=== PATIENT | male | born 1970 | race Caucasian/White ===

== ENCOUNTER 2022-11-20 10:51 | Emergency (ER) | payer BC, SELFPAY ==
[2022-11-20] VITALS (8 sets, daily range): BP systolic 123–158; BP diastolic 85–97; PULSE 51–71; RESP 16–18; TEMP 36.6; O2SAT 94–98; BMI 26.3
--- NOTE | 2022-11-20 11:26 | ED.ABDPAIN ---
HPI - Abdominal Pain General Time Seen by Provider: 11:26 Date Seen: 11/20/22 Chief Complaint: Abdominal Pain Stated Complaint: Abdominal pain/blood in stool Time Seen by Provider: 11/20/22 11:20 Source: patient and RN notes reviewed Mode of arrival: ambulatory Limitations: no limitations History of Present Illness HPI narrative: Patient is a 52-year-old male coming in with abdominal pain associated with some rectal bleeding. He had some cramping this morning, went to the bathroom. He noted it significant blood with wiping. He is not sure if blood filled the toilet or not. After that, pain seemed to go to the right lower quadrant. After arriving here, is feeling it more on the left lower quadrant. He is feeling a little nauseated but has not vomited. He has had colonoscopies, thinks he has had about 3 of him. He has a history of polyps but his last colonoscopy was clear. He was given a 5 year interval, believes his last colonoscopy was about 4 years ago. He has had abdominal hernia repair, no other abdominal surgery. His stool was looser this morning. No fevers. There was no pain with defecation. Movement is bothering him and increases pain at this time. MD elicited complaint: abdominal pain Related Data Home Medications Medication Instructions Recorded Confirmed fexofenadine-pseudoephedrine ER 1 tab PO DAILY 11/20/22 11/20/22 180 mg-240 mg tablet,ext.release 24 hr (Shoshana-D 24 Hour) fluticasone propionate intranasal 11/20/22 Allergies Allergy/AdvReac Type Severity Reaction Status Date / Time No Known Drug Allergies Allergy Verified 11/20/22 11:02 Review of Systems Status of ROS Reports: 10 or more systems reviewed and unremarkable except as noted in History and below [facility] Social History Smoking Status: Never smoker Do you use any of these nicotine containing products: None Second hand tobacco smoke exposure: No How often do you have a drink containing alcohol: never How often do you have six or more drinks on one occasion: Never AUDIT-C Alcohol total score: 0 Non-prescribed substance use: denies use service: No Exam Const: Vital Signs, click to edit/add: Vital Signs - 24 hr 11/20/22 10:59 Temperature 97.9 F Pulse Rate [Pulse Oximeter] 71 Respiratory Rate 18 Blood Pressure [Ri ght Upper Arm] 158/97 H Pulse Oximetry 96 Oxygen Delivery Me thod Room Air Documenting provider has reviewed patient's vital signs: yes Common normals: no apparent distress (Initially when seated), oriented x3, no limitations, healthy appearing, alert and well nourished General appearance: cooperative, comfortable (Before moving), well kempt and well developed Nutritional appearance: thin Other: When patient attempted to lie back in the bed, became extremely painful. Did attempt to move around the other side which was visibly uncomfortable for him. Did assist him into the bed from the other side. Once he was in a reclining position, felt better. HENMT: Common normals: normocephalic, head/scalp atraumatic, hearing grossly normal bilaterally, external ears normal and external nose normal Head and scalp: normocephalic and atraumatic Face and sinus: normal facial exam Nose: external nose normal External ear: external ears normal Eye: Common normals: PERRL, EOMs intact bilaterally, conjunctivae normal and no scleral icterus Conjunctiva: conjunctiva(e) normal Pupil: PERRL Neck & C-Spine: Common normals: full ROM, no lymphadenopathy, supple, no meningeal signs, no JVD and thyroid normal Thyroid: thyroid normal Resp: Common normals: normal respiratory effort, no retractions, no use of accessory muscles and clear to auscultation bilaterally Effort & inspection: able to speak in complete sentences Auscultation: clear to auscultation bilaterally Cardio: Common normals: no JVD, regular rate, regular rhythm, S1 normal heart sound, S2 normal heart sound, no gallops, no clicks and no murmurs Rate: regular rate Rhythm: regular rhythm Heart sounds: S1 normal and S2 normal GI: Common normals: Normal to inspection, nondistended, normoactive bowel sounds present, soft to palpation, no hepatosplenomegaly and no masses Palpation: soft and no hepatosplenomegaly Other: Has some mild generalized lower abdominal tenderness without rebound or guarding. Extremity: Common normals: no calf tenderness and no pedal edema Neuro: Common normals: oriented x3 Sensorium/orientation: alert Meningeal signs: no meningeal signs Psych: Appearance: well kempt Course Course Hospital Course: Patient is declining any pain management, states he is feeling better after getting into the bed and resting. He most certainly has significant pain with movement. Reviewed with him that such things like diverticular bleed, diverticulitis, possible colitis are higher probability is for me given that he has had up-to-date management with colonoscopies. Will establish an IV, give him some Zofran for nausea and initiate fluids. Will get appropriate labs including a type and screen. He will have a CT of abdomen and pelvis with IV contrast. Will monitor with pulse oximetry to start. Reevaluation(s) Time of Reevaluation #1: 14:13 Reevaluation #1: Have reviewed with patient CT findings, labs. He at this time is stable, has had no further episodes bleeding or stool production here. We are going to have him try some clears. If he tolerates this, likely discharge to home for further outpatient observation. Presumably this is a self-limited, isolated diverticular bleed. He will get his colonoscopy updated however outpatient if no further complications with this visit. Vital Signs Vital signs: Initial Vital Signs Temperature 97.9 F 11/20/22 10:59 Temperature Source Temporal Artery Scan 11/20/22 10:59 Pulse Rate 71 11/20/22 10:59 Respiratory Rate 18 11/20/22 10:59 Blood Pressure 158/97 H 11/20/22 10:59 Blood Pressure Mean 117 H 11/20/22 10:59 Blood Pressure Position Supine 11/20/22 10:59 Pulse Oximetry 96 11/20/22 10:59 Oxygen Delivery Method Room Air 11/20/22 10:59 Vital Signs Temperature 97.9 F 11/20/22 10:59 Pulse Rate 71 11/20/22 10:59 Respiratory Rate 18 11/20/22 10:59 Blood Pressure 158/97 H 11/20/22 10:59 Pulse Oximetry 96 11/20/22 10:59 Oxygen Delivery Method Room Air 11/20/22 10:59 Temperature 97.9 F 11/20/22 10:59 Pulse Rate 71 11/20/22 10:59 Respiratory Rate 18 11/20/22 10:59 Blood Pressure 158/97 H 11/20/22 10:59 Pulse Oximetry 96 11/20/22 10:59 Oxygen Delivery Method Room Air 11/20/22 10:59 MDM - Abdominal Pain Differential Diagnosis Differential diagnosis: Likely abdominal pain, acute appendicitis and diverticulitis Lab Data Attestation: I reviewed the patient's lab results. Labs: Lab Results 11/20/22 Range/Units 11:57 WBC 4.71 (4.50-11.00) K/uL RBC 4.95 (4.30-5.90) m/uL Hgb 14.8 (13.5-17.5) gm/dL Hct 44.0 (37.0-53.0) % MCV 89 (80-100) fL MCH 30 (26-34) pg MCHC 34 (32-36) gm/dL RDW Coeff of Odalis 12.9 (11.5-15.5) % Plt Count 187 (140-440) K/uL Neut % (Auto) 65.0 (42.0-72.0) % Lymph % (Auto) 23.4 (20-44) % [place] % (Auto) 7.2 (0.0-11.0) % Eos % (Auto) 3.8 (0.0-7.0) % Baso % (Auto) 0.4 (0.0-3.0) % Neut # (Auto) 3.06 (1.7-7.0) K/uL Lymph # (Auto) 1.10 (0.90-2.90) K/uL [place] # (Auto) 0.30 (0.00-0.90) K/UL Eos # (Auto) 0.18 (0.00-0.50) K/uL Baso # (Auto) 0.02 (0.00-0.30) K/uL Total Counted Cancelled Neutrophils % (Manual) Cancelled Lymphocytes % (Manual) Cancelled Reactive Lymphs % (Man) Cancelled Monocytes % (Manual) Cancelled Eosinophils % (Manual) Cancelled Basophils % (Manual) Cancelled Metamyelocytes % (Man) Cancelled Myelocytes % (Man) Cancelled Promyelocytes % (Man) Cancelled Blast Cells % (Manual) Cancelled Abs Neuts (Manual) Cancelled Lymphocytes # (Manual) Cancelled Monocytes # (Manual) Cancelled Eosinophils # (Manual) Cancelled Basophils # (Manual) Cancelled Abs Metamyelocytes (Man) Cancelled Abs Myelocytes (Man) Cancelled Abs Promyelocytes (Man) Cancelled Abs Blast Cells (Man) Cancelled Nucleated RBCs Cancelled Hypersegmented Neuts Cancelled Smudge Cells Cancelled Toxic Granulation Cancelled Dohle Bodies Cancelled Kit Rods Cancelled Platelet Estimate Cancelled Clumped Platelets Cancelled Large Platelets Cancelled Giant Platelets Cancelled RBC Morphology Cancelled Dimorphic RBCs Cancelled Polychromasia Cancelled Hypochromasia Cancelled Poikilocytosis Cancelled Basophilic Stippling Cancelled Anisocytosis Cancelled Microcytosis Cancelled Macrocytosis Cancelled Spherocytes Cancelled Pappenheimer Bodies Cancelled Sickle Cells Cancelled Target Cells Cancelled Tear Drop Cells Cancelled Ovalocytes Cancelled Stomatocytes Cancelled Helmet Cells Cancelled [place] Bodies Cancelled [place] Rings Cancelled Keanu Cells Cancelled Acanthocytes (Spur) Cancelled Rouleaux Cancelled Schistocytes Cancelled Sodium 133 L (135-149) mmol/L Potassium 3.8 (3.6-5.1) mmol/L Chloride 103 (96-114) mmol/L Carbon Dioxide 26 (20-32) mmol/L BUN 29 (7-30) mg/dL Creatinine 0.8 (0.5-1.5) mg/dL Estimated Creat Clear 122.73 Estimated GFR 105 ml/min Glucose 105 (60-115) mg/dL Lactate 0.8 (0.5-1.9) mmol/L Calcium 9.3 (8.4-10.6) mg/dL Total Bilirubin 0.8 (0.1-1.5) mg/dL AST 37 H (12-35) U/L ALT 35 (4-50) U/L Alkaline Phosphatase 69 (40-150) U/L C-Reactive Protein 0.5 (0.5-1.0) mg/dL Total Protein 7.3 (6.0-8.3) g/dL Albumin 4.6 (3.3-5.0) g/dL Blood Type B Positive Antibody Screen NEGATIVE Imaging Data CT scan - abdomen: Attestation: I have reviewed the pertinent imaging results. Radiologist's impression: Patient: JOSE JUAN DAILY Facility:?[facility] Patient ID:?[id number] Site Patient ID:?[id number]. Site :?[id number] Study:?CT Abdomen/Pelvis W/IV ONLY-11/20/2022 12:33:47 PM Ordering Physician:?Conchita Mireles Final Report: INDICATION: Rectal bleeding and lower abdominal pain COMPARISON: None TECHNIQUE: CT examination of the abdomen and pelvis was performed following the uneventful intravenous administration of 98 cc of Isovue 370. Thin section axial images were obtained from the lung bases through the pubic symphysis. Oral contrast was not administered. Please note that all CT scans at this facility use dose modulation, iterative reconstruction, and/or weight-based dosing when appropriate to reduce radiation dose to as low as reasonably achievable. FINDINGS: LUNG BASES: Linear opacities consistent with atelectasis or scarring. A right middle lobe nodule is noted measuring 4.7 millimeters. Follow-up evaluation recommended as per Fleischner society guidelines.Small hiatal hernia. Heart size normal at the lung bases LIVER/BILIARY SYSTEM:Hepatic steatosis in a geographic pattern. No focal mass or biliary ductal dilation. Normal appearing gallbladder. ADRENALS: Normal KIDNEYS, URETERS and BLADDER:Right upper pole renal cyst measuring about 3 centimeters. Kidneys otherwise unremarkable. No evidence of obstructive uropathy. The bladder appears normal SPLEEN:Normal appearance. PANCREAS: Appears normal. RETROPERITONEUM and MESENTERY: There is no mass, adenopathy or aortic aneurysm. Incidental retro aortic left renal vein. GASTROINTESTINAL SYSTEM: There is no evidence of diverticulitis, colitis, mechanical obstruction, or appendicitis. The small bowel as visualized appears normal.Scattered diverticulosis. No specific visible cause for rectal bleeding. PELVIS: No mass, adenopathy or free fluid. OSSEOUS STRUCTURES and ABDOMINAL WALL: Degenerative changes. Postsurgical changes at L5-S1.. No significant abdominal wall defect OTHER: No free fluid or free air. IMPRESSION: There is no visible cause for rectal bleeding. There are few scattered diverticula. No acute inflammatory process of bowel. No evidence of colitis or proctitis. No directly visible mass by CT. Please note that all CT scans at this facility use dose modulation, iterative reconstruction, and/or weight-based dosing when appropriate to reduce radiation dose to as low as reasonably achievable. Dictated by Jose Enrique Canas MD @ 11/20/2022 1:52:06 PM (Electronic Signature) Critical Care Time Critical Care Time Critical Care Time: No Discharge Plan Discharge Clinical Impression: Rectal bleeding, Abdominal pain Patient Disposition: Home, Self-Care Condition: Stable Instructions: Rectal Bleeding (ED), Abdominal Pain (ED) Additional Instructions: Stay on clear liquids for the remainder of the day. Can advanced her diet if you are feeling better tomorrow back to normal. Would avoid aspirin or ibuprofen compounds for the next 7-10 days. If you need something for pain, can try Tylenol. Recommend getting your colonoscopy updated, work through your primary clinic to get this done. If you have further episodes of rectal bleeding, need to be re-evaluated. My presumption at this time is that this was a self limited diverticular bleed. Other things that can bleed in the colon are arterial venous malformations. Activity Level: No strenuous activity Activity Detail: Minimize activity for the next 24-48 hours. If no further bleeding, can resume usual activity. Prescriptions: No Action fexofenadine-pseudoephedrine [Shoshana-D 24 Hour] 180-240 mg tablet extended release 24 hr 1 tab PO DAILY fluticasone propionate [Flonase Allergy Relief] intranasal Stand Alone Forms: [employer] Info Instructions
--- NOTE | 2022-11-20 11:34 | CRLHL7_ITS ---
For Patients: As a result of the Century Cures Act, medical imaging exams and procedure reports are released immediately into your electronic medical record. You may view this report before your referring provider. If you have questions, please contact your health care provider. INDICATION: Rectal bleeding and lower abdominal pain COMPARISON: None TECHNIQUE: CT examination of the abdomen and pelvis was performed following the uneventful intravenous administration of 98 cc of Isovue 370. Thin section axial images were obtained from the lung bases through the pubic symphysis. Oral contrast was not administered. Please note that all CT scans at this facility use dose modulation, iterative reconstruction, and/or weight-based dosing when appropriate to reduce radiation dose to as low as reasonably achievable. FINDINGS: LUNG BASES: Linear opacities consistent with atelectasis or scarring. A right middle lobe nodule is noted measuring 4.7 millimeters. Follow-up evaluation recommended as per Fleischner society guidelines.Small hiatal hernia. Heart size normal at the lung bases LIVER/BILIARY SYSTEM:Hepatic steatosis in a geographic pattern. No focal mass or biliary ductal dilation. Normal appearing gallbladder. ADRENALS: Normal KIDNEYS, URETERS and BLADDER:Right upper pole renal cyst measuring about 3 centimeters. Kidneys otherwise unremarkable. No evidence of obstructive uropathy. The bladder appears normal SPLEEN:Normal appearance. PANCREAS: Appears normal. RETROPERITONEUM and MESENTERY: There is no mass, adenopathy or aortic aneurysm. Incidental retro aortic left renal vein. GASTROINTESTINAL SYSTEM: There is no evidence of diverticulitis, colitis, mechanical obstruction, or appendicitis. The small bowel as visualized appears normal.Scattered diverticulosis. No specific visible cause for rectal bleeding. PELVIS: No mass, adenopathy or free fluid. OSSEOUS STRUCTURES and ABDOMINAL WALL: Degenerative changes. Postsurgical changes at L5-S1.. No significant abdominal wall defect OTHER: No free fluid or free air. IMPRESSION: There is no visible cause for rectal bleeding. There are few scattered diverticula. No acute inflammatory process of bowel. No evidence of colitis or proctitis. No directly visible mass by CT. Please note that all CT scans at this facility use dose modulation, iterative reconstruction, and/or weight-based dosing when appropriate to reduce radiation dose to as low as reasonably achievable. Dictated by Jose Enrique Canas MD @ 11/20/2022 1:52:06 PM (Electronically Signed)
[2022-11-20 12:03] LABS: Lactate* 0.8 mmol/L (0.5-1.9)
[2022-11-20 12:06] LABS: Basophils Absolute Auto 0.02 K/uL (0.00-0.30); Basophils Percent Auto 0.4 % (0.0-3.0); Eosinophils Absolute Auto 0.18 K/uL (0.00-0.50); Eosinophils Percent Auto 3.8 % (0.0-7.0); Hemoglobin* 14.8 gm/dL (13.5-17.5); Immature Granulocytes Abs Auto 0.01 K/uL (0.00-0.30); Immature Granulocytes Pct Auto 0.2 %; Lymphocytes Percent Auto 23.4 % (20-44); Mean Corpuscular HGB Conc 34 gm/dL (32-36); Mean Corpuscular Hemoglobin 30 pg (26-34); Mean Corpuscular Volume 89 fL (80-100); Monocytes Percent Auto 7.2 % (0.0-11.0); Neutrophils Absolute Auto 3.06 K/uL (1.7-7.0); Platelet Count* 187 K/uL (140-440); RDW Coefficient of Variation % 12.9 % (11.5-15.5); Red Blood Count 4.95 m/uL (4.30-5.90); White Blood Count* 4.71 K/uL (4.50-11.00)
[2022-11-20] MEDS: 0.9 % SODIUM CHLORIDE 1000 ml 1,000 ML 500 ML IV (12:06)
[2022-11-20] MEDS: ONDANSETRON 2 MG/ML inj 4 MG IVP (12:07)
[2022-11-20 12:08] LABS: Slide Review Reflex No
--- NOTE | 2022-11-20 12:19 | ED.NURSE ---
patient has had an episode of bloody stools red in color today and has never had before. denies being symptomatic. started today and is receiving fluids and zofran per eMAR.
[2022-11-20 12:21] LABS: Albumin* 4.6 g/dL (3.3-5.0); Chloride* 103 mmol/L (96-114); Potassium* 3.8 mmol/L (3.6-5.1); Sodium* 133 mmol/L (135-149)
[2022-11-20 12:23] LABS: Creatinine* 0.8 mg/dL (0.5-1.5); Est. Creatinine Clearance* 122.73; Estimated Glomerular Filt Rate 105 ml/min
[2022-11-20 12:24] LABS: Alanine Aminotransferase* 35 U/L (4-50); Alkaline Phosphatase* 69 U/L (40-150); Aspartate Amino Transferase* 37 U/L (12-35); Bilirubin Total* 0.8 mg/dL (0.1-1.5); Blood Urea Nitrogen* 29 mg/dL (7-30); Carbon Dioxide* 26 mmol/L (20-32); Glucose* 105 mg/dL (60-115); Total Protein* 7.3 g/dL (6.0-8.3)
[2022-11-20 12:25] LABS: Calcium* 9.3 mg/dL (8.4-10.6)
[2022-11-20 12:27] LABS: C Reactive Protein* 0.5 mg/dL (0.5-1.0)
--- NOTE | 2022-11-20 13:16 | ED.NURSE ---
patient is up to the bathroom via ambulatory. continues to have pain with movement and facial grimacing noted. offered if wanted pain medication and declined at this time.
--- NOTE | 2022-11-20 14:52 | ED.NURSE ---
given patient something to drink and starting with clear water per MD. wants to watch over next hour to see if further issues.
== END 2022-11-20 16:00 | disposition home or self-care (01) ==
PROVIDERS: Emergency Provider Family Medicine; PCP Family Medicine
DX: R10.9 Unspecified abdominal pain (principal); K62.5 Hemorrhage of anus and rectum
CPT/HCPCS: 36415; 74177; 80053; 83605; 85025; 86140; 86850; 86900; 86901; 94761; 96361; 96374; 99284; 99285; J2405; J7030; Q9967

== ENCOUNTER 2023-11-11 15:15 | Outpatient (RCR) | payer BC, SELFPAY | END 2024-02-06 11:01 | disposition home or self-care (01) | PROVIDERS: PCP Family Medicine; Visit Provider Family Medicine | DX: S39.91XA Unspecified injury of abdomen, initial encounter (principal); Z51.89 Encounter for other specified aftercare | CPT/HCPCS: 97110; 97161 ==